=== PATIENT | female | born 1945 | race Hispanic/Latino ===

== ENCOUNTER 2017-07-16 09:30 | Emergency (ER) | payer MEDICARE, OTHER ==
[2017-07-16 09:58] VITALS: PULSE 88; RESP 18; O2SAT 97
[2017-07-16 11:41] LABS: BASO # 0.1 K/uL (0.0-0.2); BASO % 0.4 % (0.0-2.0); EOS % 0.4 % (0.0-4.0); HEMATOCRIT 41.4 % (34.0-47.0); LYMPH # 1.1 K/uL (1.0-4.3); MEAN CELL VOLUME 90.3 fl (81.0-99.0); MEAN CORPUSCULAR HEMOGLOBIN 30.2 pg (27.0-31.0); MEAN CORPUSCULAR HGB CONC 33.4 g/dL (33.0-37.0); MEAN PLATELET VOLUME 6.7 fl (7.2-11.7); MONO # 0.9 K/uL (0.0-0.8); NEUT # 10.5 K/uL (1.8-7.0); NEUT % 83.2 % (50.0-75.0); PLATELET COUNT 263 K/uL (130-400); RED CELL DISTRIBUTION WIDTH 16.3 % (11.5-14.5); WHITE BLOOD COUNT 12.6 K/uL (4.8-10.8)
[2017-07-16 11:45] LABS: BLOOD UREA NITROGEN 15 mg/dl (7-17); CARBON DIOXIDE 29 mmol/L (22-30); CHLORIDE 96 mmol/L (98-107); GFR AFRICAN-AMERICAN > 60; GLUCOSE,RANDOM 121 mg/dL (65-105); POTASSIUM 3.9 MMOL/L (3.6-5.0); SODIUM 132 mmol/l (132-148)
[2017-07-16 12:22] LABS: NEUTROPHIL 82 % (42-75); REACTIVE LYMPHOCYTES 2 % (0-0); TOTAL CELLS COUNTED 100
--- NOTE | 2017-07-16 12:25 | ED PDOC ---
HPI: Abdomen Time Seen by Provider: 07/16/17 09:55 Chief Complaint (Nursing): Abdominal Pain Chief Complaint (Provider): Abdominal Pain History Per: Patient History/Exam Limitations: no limitations Onset/Duration Of Symptoms: Days (x1), Intermittent Episodes Location Of Pain/Discomfort: RLQ Exacerbating Factors: Walking Additional Complaint(s): Anuradha Thomas is a 72 year old female, with a past medical history of HTN, who present to the emergency department complaining of Right lower quadrant abdominal pain onset since yesterday. Patient states the pain is intermittent and worst when she walks. Patient has had similar symptoms for the past couple of months in the same are and similar manner. She was evaluated at [facility] and [place] and was diagnosed with right sided ovarian cyst. She is just currently visiting and she is scheduled for surgery. She does believe the pain is due to the cyst. She was recently diagnosed with PMR and is currently taking medications for it. She denies any nausea, vomit, diarrhea, fever, vaginal bleeding, dysuria or constipation. No further medical complications. PMD: None provided. Past Medical History Reviewed: Historical Data, Nursing Documentation, Vital Signs Vital Signs: Last Vital Signs Temp 98.1 F 07/16/17 16:45 Pulse 88 07/16/17 09:56 Resp 18 07/16/17 09:56 BP 158/87 H 07/16/17 16:45 Pulse Ox 97 07/16/17 16:42 - Medical History PMH: HTN - Family History Family History: States: Unknown Family Hx - Social History Current smoker - smoking cessation education provided: No Alcohol: None Drugs: Denies - Home Medications Home Medications: Ambulatory Orders Medication Instructions Recorded traMADol [Ultram] 50 mg PO TID PRN #15 tab 07/16/17 - Allergies Allergies/Adverse Reactions: Allergies Allergy/AdvReac Type Severity Reaction Status Date / Time No Known Allergies Allergy Verified 07/16/17 09:55 Review of Systems ROS Statement: Except As Marked, All Systems Reviewed And Found Negative Constitutional: Negative for: Fever Gastrointestinal: Positive for: Abdominal Pain (Right lower quadrant intermittent ). Negative for: Nausea, Vomiting, Diarrhea, Constipation Genitourinary Female: Negative for: Dysuria, Vaginal Bleeding Physical Exam - Reviewed Nursing Documentation Reviewed: Yes Vital Signs Reviewed: Yes - Physical Exam Appears: Positive for: Well, Non-toxic, No Acute Distress Head Exam: Positive for: ATRAUMATIC, NORMAL INSPECTION, NORMOCEPHALIC Skin: Positive for: Normal Color, Warm, Dry Eye Exam: Positive for: EOMI, Normal appearance, PERRL Neck: Positive for: Normal, Painless ROM, Supple Cardiovascular/Chest: Positive for: Regular Rate, Rhythm. Negative for: Murmur Respiratory: Positive for: Normal Breath Sounds. Negative for: Respiratory Distress Gastrointestinal/Abdominal: Positive for: Tenderness (mild Right lower quadrant ) Back: Positive for: Normal Inspection. Negative for: L CVA Tenderness, R CVA Tenderness Extremity: Positive for: Normal ROM. Negative for: Pedal Edema, Deformity, Swelling Neurologic/Psych: Positive for: Alert, Oriented - Laboratory Results Result Diagrams: 07/16/17 11:25 07/16/17 11:25 - ECG O2 Sat by Pulse Oximetry: 97 (RA) Pulse Ox Interpretation: Normal Medical Decision Making Medical Decision Making: Initial Impression: Right lower quadrant pain. Differential includes: ovarian cyst rupture, ovarian torsion, appendicitis, UTI Initial Plan: --Abd & Pelvis IV Contrast only [CT] --BMP --Urine --Urine dipstick --CBC w/ differential --Pelvis Ultrasound [US] --reevaluation 1523 Abdomen/Pelvis CT FINDINGS: LOWER THORAX: No visible consolidation, pleural effusion, or pneumothorax. Partially imaged bilateral breast prostheses. Question implant deformity on the left ; correlate with dedicated breast imaging if indicated. LIVER: Unremarkable. GALLBLADDER AND BILE DUCTS: Unremarkable. PANCREAS: Pancreatic atrophy. SPLEEN: Unremarkable. ADRENALS: Unremarkable. KIDNEYS AND URETERS: Too small to characterize bilateral renal hypodensities ; statistically likely cysts. The kidneys enhance symmetrically. No hydronephrosis or obstructing calculus identified. VASCULATURE: Atherosclerotic calcifications. No aortic aneurysm. BOWEL: Stomach is nondistended. Lack of oral contrast limits evaluation for bowel pathology. Bowel loops appear within normal limits of caliber without evidence of obstruction. Diverticulosis without CT evidence of acute diverticulitis. Moderate constipation. APPENDIX: The appendix appears within normal limits of caliber. No secondary signs of acute appendicitis. PERITONEUM: Small pelvic free fluid. No definite free air. LYMPH NODES: No bulky adenopathy identified. BLADDER: Distended urinary bladder. REPRODUCTIVE: Calcifications within the uterus presumed to reflect degenerating fibroid. 4.2 cm left adnexal lesion suspected to reflect ovarian cyst. 7.2 cm right adnexal lesion suspected to reflect right ovarian cyst. BONES: No acute osseous abnormality is detected. Grade 1 anterolisthesis of L5 on S1. OTHER FINDINGS: None. IMPRESSION: 7.2 cm right adnexal lesion suspected to reflect right ovarian cyst. 4.2 cm left adnexal lesions suspected to reflect ovarian cyst. Recommend further evaluation with pelvic ultrasound. Probable degenerating uterine fibroid. Diverticulosis without CT evidence of acute diverticulitis. Moderate constipation. Too small to characterize bilateral renal hypodensities ; statistically likely cysts. Pancreatic atrophy. Small pelvic free fluid. Distended urinary bladder. Partially imaged bilateral breast prostheses. Question implant deformity on the left ; correlate with dedicated breast imaging if indicated. 1534 Abdomen/Pelvis/Transvag US FINDINGS: UTERUS: Measures 5.7 x 3.9 x 2.8 cm. Uterus appears slightly atrophic with peripheral vascular calcifications identified but no cystic lesion identified. A partial calcified fibroids seen at the left side of the anterior fundus measure 1.4 x 1.5 x 1.7 cm. Trace fluid is seen within the endometrial cavity with the endometrium otherwise unremarkable measuring 2.62 mm thickness overall. CERVIX: No cervical abnormality identified. RIGHT OVARY: Measures 7.6 x 7.5 x 6.2 cm. The right ovary is enlarged by a cyst which measures 6.4 x 6.4 x 5.4 cm and is avascular on color Doppler blood flow. No peripheral blood flow is encountered and therefore right ovarian torsion is difficult to completely exclude. This is highly unlikely in a patient has had intermittent pain for the past few months apparently on discussion of this patient with referring physician. No additional findings are identified in the right adnexal compartment. LEFT OVARY: Measures 5.2 x 4.8 x 4.0 cm. Color Doppler blood flow is identified in the periphery of the left ovary which is enlarged by an additional simple appearing cyst measuring 4.5 x 4.0 x 4.2 cm. No septation or nodular changes seen related and there is no suspicious internal color blood flow related to this cyst. FREE FLUID: Trace fluid seen the cul-de-sac. OTHER FINDINGS: None. IMPRESSION: No color Doppler blood flow was encountered at the right ovary despite intensive search on transvaginal technique raising suspicion for potential torsion although this is not favored given intermittent pain over the past several months on discussion of this patient's history with referring physician. A 6.4 cm cyst seen related to the right ovary which is simple appearing. Further clinical correlation is advised. 4.5 cm simple cyst seen related to the left ovary. Limited fluid is seen in the endometrial cavity and there is a small anterior fundal fibroid at the left side of the uterus. 1620 -Discussed case with Dr. Rutherford, OB air conditioning technician. He reviewed the patient's history, physical exam, and US impressions with me. Dr. Rutherford recommends pain control, for patient to be discharged and follow-up the appointment with primary sock turner in [place]. Scribe Attestation: Documented by Jarek Alonso, acting as a scribe for Pritesh Montoya MD Provider Scribe Attestation: All medical record entries made by the Scribe were at my direction and personally dictated by me. I have reviewed the chart and agree that the record accurately reflects my personal performance of the history, physical exam, medical decision making, and the department course for this patient. I have also personally directed, reviewed, and agree with the discharge instructions and disposition. Disposition - Clinical Impression Clinical Impression: Ovarian cyst - Patient ED Disposition Is Patient to be Admitted: No Doctor Will See Patient In The: Office Counseled Patient/Family Regarding: Studies Performed, Diagnosis, Need For Followup - Disposition Referrals: Your, sock turner [Other] Disposition: Routine/Home Disposition Time: 17:53 Condition: GOOD Additional Instructions: Take tylenol or advil for pain. Follow up with your PCP in 2-3 days. Prescriptions: traMADol [Ultram] 50 mg PO TID PRN #15 tab PRN Reason: Pain, Severe (8-10) Instructions: Ovarian Cyst (ED)
[2017-07-16] MEDS ORDERED: Iohexol 300 100 ML IJ ONE (13:38)
[2017-07-16] MEDS ORDERED: Sodium Chloride 0.9% 50 ML IV ONE (13:38)
--- NOTE | 2017-07-16 15:25 | CT ---
PROCEDURE: CT Abdomen and Pelvis with contrast HISTORY: rlq pain hx of ovarian cyst COMPARISON: None available. TECHNIQUE: Contrast dose: 95 cc Omnipaque 300 Radiation dose: Total exam DLP = 719.51 mGy-cm. This CT exam was performed using one or more of the following dose reduction techniques: Automated exposure control, adjustment of the mA and/or kV according to patient size, and/or use of iterative reconstruction technique. FINDINGS: LOWER THORAX: No visible consolidation, pleural effusion, or pneumothorax. Partially imaged bilateral breast prostheses. Question implant deformity on the left ; correlate with dedicated breast imaging if indicated. LIVER: Unremarkable. GALLBLADDER AND BILE DUCTS: Unremarkable. PANCREAS: Pancreatic atrophy. SPLEEN: Unremarkable. ADRENALS: Unremarkable. KIDNEYS AND URETERS: Too small to characterize bilateral renal hypodensities ; statistically likely cysts. The kidneys enhance symmetrically. No hydronephrosis or obstructing calculus identified. VASCULATURE: Atherosclerotic calcifications. No aortic aneurysm. BOWEL: Stomach is nondistended. Lack of oral contrast limits evaluation for bowel pathology. Bowel loops appear within normal limits of caliber without evidence of obstruction. Diverticulosis without CT evidence of acute diverticulitis. Moderate constipation. APPENDIX: The appendix appears within normal limits of caliber. No secondary signs of acute appendicitis. PERITONEUM: Small pelvic free fluid. No definite free air. LYMPH NODES: No bulky adenopathy identified. BLADDER: Distended urinary bladder. REPRODUCTIVE: Calcifications within the uterus presumed to reflect degenerating fibroid. 4.2 cm left adnexal lesion suspected to reflect ovarian cyst. 7.2 cm right adnexal lesion suspected to reflect right ovarian cyst. BONES: No acute osseous abnormality is detected. Grade 1 anterolisthesis of L5 on S1. OTHER FINDINGS: None. IMPRESSION: 7.2 cm right adnexal lesion suspected to reflect right ovarian cyst. 4.2 cm left adnexal lesions suspected to reflect ovarian cyst. Recommend further evaluation with pelvic ultrasound. Probable degenerating uterine fibroid. Diverticulosis without CT evidence of acute diverticulitis. Moderate constipation. Too small to characterize bilateral renal hypodensities ; statistically likely cysts. Pancreatic atrophy. Small pelvic free fluid. Distended urinary bladder. Partially imaged bilateral breast prostheses. Question implant deformity on the left ; correlate with dedicated breast imaging if indicated.
--- NOTE | 2017-07-16 15:35 | US ---
HISTORY: RLQ pain right ovarian cyst COMPARISON: None available. TECHNIQUE: Transabdominal and transvaginal pelvic ultrasound was performed with longitudinal and transverse images submitted for interpretation. FINDINGS: UTERUS: Measures 5.7 x 3.9 x 2.8 cm. Uterus appears slightly atrophic with peripheral vascular calcifications identified but no cystic lesion identified. A partial calcified fibroids seen at the left side of the anterior fundus measure 1.4 x 1.5 x 1.7 cm. Trace fluid is seen within the endometrial cavity with the endometrium otherwise unremarkable measuring 2.62 mm thickness overall. CERVIX: No cervical abnormality identified. RIGHT OVARY: Measures 7.6 x 7.5 x 6.2 cm. The right ovary is enlarged by a cyst which measures 6.4 x 6.4 x 5.4 cm and is avascular on color Doppler blood flow. No peripheral blood flow is encountered and therefore right ovarian torsion is difficult to completely exclude. This is highly unlikely in a patient has had intermittent pain for the past few months apparently on discussion of this patient with referring physician. No additional findings are identified in the right adnexal compartment. LEFT OVARY: Measures 5.2 x 4.8 x 4.0 cm. Color Doppler blood flow is identified in the periphery of the left ovary which is enlarged by an additional simple appearing cyst measuring 4.5 x 4.0 x 4.2 cm. No septation or nodular changes seen related and there is no suspicious internal color blood flow related to this cyst. FREE FLUID: Trace fluid seen the cul-de-sac. OTHER FINDINGS: None. IMPRESSION: No color Doppler blood flow was encountered at the right ovary despite intensive search on transvaginal technique raising suspicion for potential torsion although this is not favored given intermittent pain over the past several months on discussion of this patient's history with referring physician. A 6.4 cm cyst seen related to the right ovary which is simple appearing. Further clinical correlation is advised. 4.5 cm simple cyst seen related to the left ovary. Limited fluid is seen in the endometrial cavity and there is a small anterior fundal fibroid at the left side of the uterus. Findings discussed with Dr. Montoya, with written down and read back verification 07/08/2017 3:25 p.m..
[2017-07-16] MEDS ORDERED: Morphine 4 MG/ML VIAL IVP ONE (16:17)
[2017-07-16] MEDS ORDERED: Morphine 4 MG/ML VIAL ONE (16:41)
[2017-07-16 16:45] VITALS: BP 158/87; TEMP 98.1
== END 2017-07-16 18:04 | disposition home or self-care (01) ==
LOC: H.ER 09:30
DX: N83.201 Unspecified ovarian cyst, right side (principal); I10 Essential (primary) hypertension; D25.9 Leiomyoma of uterus, unspecified
CPT/HCPCS: 74177; 76830; 76856; 80048; 85025; 96374; 99284; J2270; Q9967